=== PATIENT | male | born 1960 | race Caucasian/White ===

== ENCOUNTER 2023-10-31 06:36 | Emergency (ER) | payer BC, SELFPAY ==
[2023-10-31 06:51] VITALS: BP 160/82
--- NOTE | 2023-10-31 07:17 | ED.GENMED ---
History of Present Illness
General
Chief Complaint: Urinary Symptoms
Source: patient
Time Seen by Provider: 10/31/23 07:07
Travel History
Have you had any contact with someone who has COVID-19?: No
Do you have any symptoms of coronavirus? Fever > 100 degrees, chills, cough, shortness of breath, sore throat, loss of taste or smell, muscle aches, or headache?: No
History of Present Illness
History of Present Illness:
63-year-old male with past medical history of bladder cancer, currently being treated with BCG treatments with last being this past , presenting to the emergency department for evaluation after 1 day of dribbling urine, today inability to
void and significant suprapubic fullness and discomfort. Patient states he has had similar before which has required a Wong catheter placement. Patient is getting his treatment at [facility] in [place]. He notes that about 2 weeks ago
he did have a further biopsy and scraping of the bladder. He denies any fevers, chills, rigors, back or flank pain, nausea, vomiting or any other concerns. He also denies any hematuria or large clots.
Past History
Past History
ED Past Medical History: Cancer, Hypercholesterolemia and Other (Status post inguinal hernia repair, hypercholesterolemia )
ED Past Surgical History: Other (Hernia repair)
Social History
Tobacco: Non-smoker
Alcohol: Occasional
Drug: None
Personal:
Living: with family
Family History
Family History: CAD
Review of Systems
Review of Systems
All Other Systems: ROS reviewed and negative except as documented in HPI and ROS
Phy Exam
Physical Exam
Physical Exam:
GENERAL: Alert , pacing in room and appears uncomfortable
EYE: clear conjunctiva b/l
HEAD: NCAT
ENT: o/p clr, mmm.
ABDOMEN: Soft, suprapubic tenderness without any significant distention, no r/g, no cvat
NEUROLOGICAL: Alert and oriented
SKIN: Warm and dry, skin intact.
MUSCULOSKELETAL: No edema, well perfused.
PSYCH: Normal and appropriate interaction.
Scores
Heart Failure Risk
Heart Failure Risk Score: Not Applicable
Heart Score for Chest Pain Patients
STEMI patient?: Not applicable
Withdrawal Assessment of Alcohol
Withdrawal Assessment Completed?: Not applicable
Course
Orders/Labs/Results
Orders:
Orders
10/31/23 07:17
Wong Placement- Treatment ONCE
Reason for insertion: Acute Retention
10/31/23 07:56
Urinalysis Reflex To Culture Urgent
Date Specimen was Collected: 10/31/23
Time Specimen was Collected: 07:33
Urine Microscopic Reflex Cult Urgent
Urine Culture Urgent
ED Source: U
Specimen Description:
Date Specimen was Collected: 10/31/23
Time Specimen was Collected: 07:33
Abnormal Lab Results
10/31/23
07:56
Ur Occult Blood Reflex 3+ A
(Negative)
Leukocyte Esterase Rfl 1+ A
(Negative)
Vital Signs
Initial and Last Documented VS:
Initial Vital Signs
Temp Pulse Resp BP Pulse Ox
98.2 F 71 16 160/82 100
10/31/23 06:51 10/31/23 06:51 10/31/23 06:51 10/31/23 06:51 10/31/23 06:51
Last Documented Vital Signs
Temp Pulse Resp BP Pulse Ox
98.2 F 65 17 132/61 99
10/31/23 08:50 10/31/23 08:50 10/31/23 08:50 10/31/23 08:50 10/31/23 08:50
MDM/Problems Addressed
Differential Diagnosis Includes:
Urinary retention, UTI, BPH, obstructive process
MDM/Problems Addressed:
63-year-old male presenting the emergency department for dribbling urine with inability to void this morning, moderate lower abdominal fullness and discomfort. Bedside bladder scan shows roughly 300 mL of urine retained. Will place Wong catheter
due to patient's discomfort as well as can possibly flush if there is any clot or obstructive process. Will send urine to be checked for UTI. Reassessment following
*Pulse Oximetry
Patient hypoxic: no
*Critical Care Note
Total Time (30-74mins, 75-104mins- exclusive of procedures): Not Applicable
Comment
Comment:
10/31/2023 0753 AM: Patient feeling significant relief following Wong catheter placement. He had approximately 400 mL of clear light yellow urine within Wong bag. UA being sent. Anticipate discharge home.
Patient Management
Escalation/DeEscalation of care consider admission/obs:
Patient's urinalysis without current signs of infection. A urine culture was sent. Patient will contact his urologist on Thursday for follow-up. Aware of return precautions emergency department but otherwise stable for discharge home.
ED Attending Note
-
Portions of this chart may have been created with voice recognition software.� Occasional wrong word or��sound alike� substitutions may have occurred due to the inherent limitations of voice recognition software.
Discharge Plan
Departure
Patient Disposition: Home (Routine Discharge)
Date of Disposition: 10/31/23
Time of Disposition: 08:38
Patient with high blood pressure during this ER visit?: Yes
Discharge Problem:
Acute urinary retention
Instructions: How to Care for Your Wong Catheter, Male
Referrals:
Aristides Mendoza, DO [Family Provider] -
Interventions
Interventions:
ED-Male Genitourinary Assessment Last Done: 10/31/23 08:50
[2023-10-31 08:12] VITALS: BP 134/73
[2023-10-31 08:34] LABS: Urine Albumin Trace (Neg - Trace); Urine Bilirubin Negative (Negative); Urine Character Clear (Clear); Urine Color Yellow; Urine Glucose Negative (Negative); Urine Ketone Negative (Negative); Urine Leukocyte 1+ (Negative); Urine Nitrite Negative (Negative); Urine Occult Blood 3+ (Negative); Urine Urobilinogen Negative (Neg - 1+)
[2023-10-31 08:50] VITALS: BP 132/61
[2023-10-31 09:07] LABS: Urine Red Blood Cell 21-25 /HPF (0-2); Urine White Cell 16-20 /HPF (0-5)
[2023-10-31 09:08] LABS: Urine Bacteria Few (Negative)
== END 2023-10-31 08:55 | disposition home or self-care (01) ==
LOC: EMR 06:36
PROVIDERS: Physician Assistant Medical; EMERGENCY PHYSICIAN Emergency Medicine; FAMILY PHYSICIAN Family Medicine
DX: R33.8 Other retention of urine (principal); Z85.51 Personal history of malignant neoplasm of bladder
CPT/HCPCS: 99283; 51798; 51702; 81003; 81015; 87086

== ENCOUNTER 2023-11-26 07:23 | Emergency (ER) | payer BC, SELFPAY ==
[2023-11-26 07:25] VITALS: BP 180/95
--- NOTE | 2023-11-26 08:11 | ED.GENMED ---
History of Present Illness
General
Chief Complaint: Urinary Symptoms
Source: patient and records
Exam Limitations: none
Time Seen by Provider: 11/26/23 07:55
Nursing documentation reviewed up to this point in time: agreed with
Travel History
Have you had any contact with someone who has COVID-19?: No
Do you have any symptoms of coronavirus? Fever > 100 degrees, chills, cough, shortness of breath, sore throat, loss of taste or smell, muscle aches, or headache?: No
History of Present Illness
History of Present Illness:
63-year-old male with a past medical history of bladder cancer currently receiving BCG treatments through [facility] who presents to the emergency room for evaluation of hematuria and difficulty passing catheter. Patient has been
receiving BCG treatments regularly at [place] [facility] last treatment was a few days ago. He says that he has been having issues with intermittent urinary retention and has been intermittently self catheterizing for urine. This morning woke up and felt
the urge to urinate but was unable to void. He attempted to self catheterize himself but was having difficulty passing the catheter and was not getting any return of urine; when he remove the catheter it was clogged up with clots of blood. Came to
the emergency room for assessment. He reports some suprapubic fullness but no abdominal pain. No flank pain. No fevers or chills. Has not had any other complaints. He is not on blood thinners.
Past History
Past History
ED Past Medical History: Cancer, Hypercholesterolemia and Other (Status post inguinal hernia repair, hypercholesterolemia )
ED Past Surgical History: Other (Hernia repair)
Social History
Tobacco: Non-smoker
Alcohol: Occasional
Drug: None
Personal:
Living: with family
Family History
Family History: CAD
Review of Systems
Review of Systems
All Other Systems: ROS reviewed and negative except as documented in HPI and ROS
Constitutional: Denies fever or chills
Respiratory: Denies trouble breathing
Cardiac: Denies chest pain
ABD/GI: Denies abdominal pain, nausea or vomiting
: Reports difficulty voiding and bleeding; Denies flank pain
Musculoskeletal: Denies neck pain or back pain
Neurological: Denies headache, weakness or numbness
Phy Exam
Physical Exam
Physical Exam:
General: Awake, alert, oriented x3; no acute distress
Head: Normocephalic, atraumatic
Eyes: Conjunctiva normal
Throat: Airway intact, handling secretions
Neck: Trachea midline, supple without meningismus
Lungs: Clear to auscultation bilaterally, no wheezing, rales, rhonchi
Heart: Regular rate and rhythm, no murmurs, gallops, or rubs
Abd: Soft, non distended, nontender
Back: No CVA tenderness
Neuro: No gross deficits
Skin: no rash
Extremities: Warm and well-perfused
Scores
Heart Failure Risk
Heart Failure Risk Score: Not Applicable
Heart Score for Chest Pain Patients
STEMI patient?: Not applicable
Withdrawal Assessment of Alcohol
Withdrawal Assessment Completed?: Not applicable
Course
Orders/Labs/Results
Orders:
Orders
11/26/23 07:44
Lidocaine 2% [Lidocaine Uro-Jet 2%] 1 syringe .ROUTE .[facility]
11/26/23 07:54
CMP [Comprehensive Metabolic Panel] Urgent
Complete Blood Count/With Diff Urgent
11/26/23 07:55
Bladder Scan- Treatment ONCE
11/26/23 08:38
Urinalysis Reflex To Culture Urgent
Date Specimen was Collected: 11/26/23
Time Specimen was Collected: 08:37
Urine Microscopic Reflex Cult Urgent
Urine Culture Urgent
ED Source: U
Specimen Description:
Date Specimen was Collected: 11/26/23
Time Specimen was Collected: 08:37
11/26/23 11:33
CefTRIAXone [Rocephin] 1,000 mg IV NOW STA
Abnormal Lab Results
11/26/23 11/26/23
07:54 08:38
RBC 4.13 L 10^6/uL
(4.70-6.10)
Hgb 12.6 L g/dL
(13.0-18.0)
Hct 37.1 L %
(39.0-52.0)
Monocytes % 9.9 H %
(1.7-9.3)
Potassium 3.4 L mmol/L
(3.5-5.1)
Chloride 108 H mmol/L
(98-107)
Glucose 104 H mg/dl
(70-99)
Total Protein 6.1 L g/dl
(6.3-8.2)
Urine Ketones Trace A
(Negative)
Ur Occult Blood Reflex 4+ A
(Negative)
Urine Nitrite (Reflex) Positive A
(Negative)
Leukocyte Esterase Rfl 1+ A
(Negative)
Urine RBC >100 A /HPF
(0-2)
Urine Albumin (Reflex) 1+ A
(Neg - Trace)
11/26/23 07:54
11/26/23 07:54
Vital Signs
Initial and Last Documented VS:
Initial Vital Signs
Temp Pulse Resp BP Pulse Ox
36.7 C 75 18 180/95 99
11/26/23 07:25 11/26/23 07:25 11/26/23 07:25 11/26/23 07:25 11/26/23 07:25
Last Documented Vital Signs
Temp Pulse Resp BP Pulse Ox
36.7 C 75 18 150/75 99
11/26/23 07:25 11/26/23 07:25 11/26/23 07:25 11/26/23 11:04 11/26/23 10:54
MDM/Problems Addressed
Differential Diagnosis Includes:
Hematuria�likely related to known bladder cancer
MDM/Problems Addressed:
63-year-old male presents with hematuria and difficulty passing catheter/getting return of urine on self-catheterization today. Tried to pass catheter due to sensation of bladder fullness but did not get return of urine only a few clots.
Hypertensive but otherwise normal vitals here. Exam as above. Bladder scan showed approximately 130 cc of retained urine. Will plan to place Wong catheter here in the emergency room and irrigate bladder if return of significant blood/clots.
Will check basic labs and UA. Reassess after the above.
Labs reviewed CBC shows marginal anemia, CMP shows marginal hypokalemia repleted p.o. Urinalysis positive for nitrites with blood, unable to count WBCs due to amount of RBCs. Will cover for UTI given frequent self-catheterization. Patient
currently undergoing bladder irrigation no significant clots passing initially dark red gross hematuria on Wong placement now faint pink color. Will turn off CBI and reassess.
Urine clearing after CBI he now has spontaneous passage of blood tinged pinkish urine. No significant clots, catheter flowing freely. He has had some spasm/discomfort from CBI/large catheter requesting that replace it for a smaller one. Will
replace but I think catheter should remain in place for discharge. He will follow-up with his urologist next week. He feels very happy with this plan. Advised return plenty fluids. Spoke about return precautions all questions answered.
Chronic conditions affecting care:
Bladder cancer
Acute Exacerbation and/or Progression of Chronic Illness:
Acutely hypertensive
Acute Exacerbation and/or Progression of Chronic Illness: HTN
*Pulse Oximetry
Patient hypoxic: no
*Critical Care Note
Total Time (30-74mins, 75-104mins- exclusive of procedures): Not Applicable
Data Reviewed
Review of Other/Old Records Reveals: Labs and Records
Source: patient and records
ED Attending Note
-
Portions of this chart may have been created with voice recognition software.� Occasional wrong word or��sound alike� substitutions may have occurred due to the inherent limitations of voice recognition software.
Discharge Plan
Departure
Patient Disposition: Home (Routine Discharge)
Date of Disposition: 11/26/23
Time of Disposition: 11:44
Patient with high blood pressure during this ER visit?: Yes
Discharge Problem:
Hematuria, Acute UTI, Hypertension
Instructions: Urinary Tract Infection, Adult (DC), Blood in the Urine (Hematuria), Adult (DC), BLOOD PRESSURE
Prescriptions:
New
cefdinir 300 mg capsule
300 mg PO BID Qty: 14 0RF
No Action
multivitamin Tablet
1 tab PO DAILY
amlodipine 5 mg Tablet
5 mg PO BID
Amor 70
3 tab PO BID
calcium
1 tab PO DAILY
Referrals:
Aristides Mendoza, [Family Provider] - Call in 1-3 days for appt
Activity Restrictions/Additional Instructions:
You should call your urologist to schedule follow-up after ED visit today; you should call first thing tomorrow to schedule follow-up as soon as possible.
Thank you for visiting the Emergency Department at [facility].
1. Please schedule a follow up appointment as directed. Call first thing tomorrow morning to make an appointment.
2. If indicated, please take your medications as instructed and indicated on discharge paperwork.
3. If any of your symptoms do not improve, or persist, or become more severe within 6-12 hours, please return to the emergency department for further care.
4. Please return to the emergency department if you develop a headache, neck pain/stiffness, fever greater than 100.4F, chest pain, shortness of breath, persistent nausea, vomiting, slurred speech, difficulty walking, numbness/tingling, weakness,
signs of infection or any other symptoms that are worrisome to you.
Please call [phone] if you have any questions.
Interventions
Interventions:
*Risk Screen - Suicide Last Done: 11/26/23 08:00
*Neglect/Abuse Screening Last Done: 11/26/23 08:00
*ED COVID-19 Vaccine History Last Done: 11/26/23 07:33
ED-Male Genitourinary Assessment Last Done: 11/26/23 08:00
[2023-11-26 08:24] LABS: % Basophils 1.1 % (0-2); % Eosinophils 4.5 % (0-6); % Immature Granulocytes 0.4 % (0-0.5); % Lymphocytes 27.6 % (20.5-51.1); % Monocytes 9.9 % (1.7-9.3); % Neutrophils 56.5 % (42.2-75.2); Absolute Basophils 0.1 10^3/uL (0-0.2); Absolute Eosinophils 0.3 10^3/uL (0-0.7); Absolute Lymphocytes 1.5 10^3/uL (1.2-3.4); Absolute Monocytes 0.6 10^3/uL (0.1-0.6); Absolute Neutrophils 3.1 10^3/uL (1.4-6.5); Hematocrit 37.1 % (39.0-52.0); Hemoglobin 12.6 g/dL (13.0-18.0); Mean Corpuscular Hgb 30.5 pg (27.0-31.0); Mean Corpuscular Volume 89.8 fL (80.0-94.0); Mean Platelet Volume 9.6 fL (7.4-10.4); Nucleated Red Blood Cells % 0 % (-); Platelet Count 227 10^3/uL (130-400); Red Blood Cell Count 4.13 10^6/uL (4.70-6.10); Red Cell Dist. Width 13.2 % (11.5-14.5); White Blood Cell Count 5.6 10^3/uL (4.8-10.8)
[2023-11-26 08:34] LABS: ALT (SGPT) 15 U/L (0-50); AST (SGOT) 22 U/L (17-59); Albumin 3.9 g/dl (3.5-5.0); Alkaline Phosphatase 67 U/L (38-126); Blood Urea Nitrogen 18 mg/dl (9-20); Calcium 8.8 mg/dl (8.4-10.2); Carbon Dioxide 26 mmol/L (22-30); Chloride 108 mmol/L (98-107); Glucose 104 mg/dl (70-99); Potassium 3.4 mmol/L (3.5-5.1); Sodium 138 mmol/L (135-145); Total Bilirubin 0.5 mg/dl (0.2-1.3); Total Protein 6.1 g/dl (6.3-8.2); eGFR > 60.00
[2023-11-26 08:38] VITALS: BP 152/69
[2023-11-26 08:51] LABS: Urine Albumin 1+ (Neg - Trace); Urine Bilirubin Negative (Negative); Urine Character Very Cloudy (Clear); Urine Color Red; Urine Glucose Negative (Negative); Urine Ketone Trace (Negative); Urine Leukocyte 1+ (Negative); Urine Nitrite Positive (Negative); Urine Occult Blood 4+ (Negative); Urine Urobilinogen Negative (Neg - 1+); Urine pH 6.5 (5.0-9.0)
[2023-11-26 08:59] LABS: Urine Red Blood Cell >100 /HPF (0-2)
[2023-11-26 09:00] VITALS: BP 144/73
[2023-11-26 10:00] VITALS: BP 146/72
[2023-11-26 11:04] VITALS: BP 150/75
[2023-11-26] MEDS: ROCEPHIN 1000 MG IV (11:33)
== END 2023-11-26 12:34 | disposition home or self-care (01) ==
LOC: EMR 07:23
PROVIDERS: Emergency Medicine; EMERGENCY PHYSICIAN Emergency Medicine; FAMILY PHYSICIAN Family Medicine
DX: R31.9 Hematuria, unspecified (principal); N39.0 Urinary tract infection, site not specified; I10 Essential (primary) hypertension; E78.00 Pure hypercholesterolemia, unspecified; C67.9 Malignant neoplasm of bladder, unspecified; E87.6 Hypokalemia; Z82.49 Family history of ischemic heart disease and other diseases of the circulatory system; Z98.890 Other specified postprocedural states
CPT/HCPCS: 99283; 96374; 80053; 81003; 81015; 85025; 87086

== ENCOUNTER 2024-04-10 22:34 | Emergency (ER) | payer BC, SELFPAY ==
[2024-04-10 22:37] VITALS: BP 181/137; BMI 20.7
[2024-04-10 23:01] LABS: Urine Albumin Negative (Neg - Trace); Urine Bilirubin Negative (Negative); Urine Character Clear (Clear); Urine Color Straw; Urine Glucose Negative (Negative); Urine Ketone Negative (Negative); Urine Leukocyte 1+ (Negative); Urine Nitrite Negative (Negative); Urine Occult Blood 2+ (Negative); Urine Urobilinogen Negative (Neg - 1+)
[2024-04-10 23:18] LABS: Urine Bacteria Few (Negative); Urine White Cell 30-40 /HPF (0-5)
--- NOTE | 2024-04-11 00:58 | ED.GENMED ---
Addendum entered and electronically signed by Max Mohamud PA-C 04/14/24 07:35:
On levofloxacin, appropriate per C&S
Original Note:
History of Present Illness
General
Chief Complaint: Urinary Symptoms
Source: patient
Exam Limitations: none
Time Seen by Provider: 04/11/24 00:42
History of Present Illness
History of Present Illness:
This is a 63 year old male that comes in with c/o urinary retention. State that last Thursday a week ago he had a procedure at [place] as he had urethral stricture. States that they also checked his bladder and they said that everything was looking
great. States that he had a catheter and then it was removed on Thursday. States that he noticed that his urine was starting to decrease yesterday and then this evening he was unable to urinate. State that he knows this feeling so he came in.
Denies any fever, chills, chest pain, SOB, abd pain, nausea, vomiting, diarrhea, headache, dizziness.
Past History
Past History
ED Past Medical History: Cancer (Bladder CA, Prostate CA), Hypercholesterolemia and Other (Status post inguinal hernia repair, hypercholesterolemia )
ED Past Surgical History: Other (Hernia repair)
Social History
Tobacco: Non-smoker
Alcohol: Occasional
Drug: None
Personal:
Living: alone
Family History
Family History: CAD
Review of Systems
Review of Systems
All Other Systems: ROS reviewed and negative except as documented in HPI and ROS
Constitutional: Reports no symptoms; Denies fever or chills
EENT: Reports no symptoms
Respiratory: Reports no symptoms; Denies cough or trouble breathing
Cardiac: Denies chest pain
ABD/GI: Reports no symptoms; Denies abdominal pain, nausea, vomiting or diarrhea
: Reports difficulty voiding
Musculoskeletal: Reports no symptoms
Skin: Reports no symptoms
Neurological: Reports no symptoms; Denies dizzy or headache
Psychiatric: Reports no symptoms
Phy Exam
General Physical Exam
General Presentation: well appearing and no apparent distress
General age: appears stated age
General Skin: warm and dry
General Habitus: normal
General Mental: alert
General Hydration: appears well hydrated
ENT Exam
ENT Exam: TM's normal, pharynx normal and neck supple
Eye Exam
Eye Exam: EOMI
Cardiovascular Exam
Cardiovascular Exam: no edema, normal peripheral pulses and irregularly irregular
Pulmonary Exam
Pulmonary Exam: lungs clear, no respiratory distress, no rales, chest non tender, no crackles, no rhonchi, no wheezing and no cough
Gastrointestinal Exam
Gastrointestinal Exam: normal bowel sounds, non tender, soft, no organomegaly, no pulsatile mass and non distended
Musculoskeletal Exam
Musculoskeletal Exam: full ROM and no edema
Skin Exam
Skin Exam: normal color, warm/dry, no rash and no petechia
Psychiatric Exam
Psychiatric Exam: normal mood/affect
Course
Orders/Labs/Results
Orders:
Orders
04/10/24 22:53
Urinalysis Reflex To Culture Urgent
Date Specimen was Collected: 04/10/24
Time Specimen was Collected: 22:49
Urine Microscopic Reflex Cult Urgent
Urine Culture Urgent
ED Source: U
Specimen Description:
Date Specimen was Collected: 04/10/24
Time Specimen was Collected: 22:49
Abnormal Lab Results
04/10/24
22:53
Ur Occult Blood Reflex 2+ A
(Negative)
Leukocyte Esterase Rfl 1+ A
(Negative)
Urine RBC 11-15 A /HPF
(0-2)
Urine WBC (Reflex) 30-40 A /HPF
(0-5)
Urine Bacteria (Reflex) Few A
(Negative)
Vital Signs
Initial and Last Documented VS:
Initial Vital Signs
Temp Pulse Resp BP Pulse Ox
98.6 F 112 16 181/137 98
04/10/24 22:37 04/10/24 22:37 04/10/24 22:37 04/10/24 22:37 04/10/24 22:37
Last Documented Vital Signs
Temp Pulse Resp BP Pulse Ox
98.6 F 112 16 181/137 98
04/10/24 22:37 04/10/24 22:37 04/10/24 22:37 04/10/24 22:37 04/10/24 22:37
MDM/Problems Addressed
Differential Diagnosis Includes:
Urinary retention. UTi
MDM/Problems Addressed:
This is a 63 year old male that a weeks ago thursday had a urological procedure. States that he had a catheter until Thursday. States that he noticed yesterday his urine was decreasing and then last night he was unable to urinate.
Wong catheter was place. Patient has a UTI. Will start on antibiotics and he will call Julio Wasserman in the morning.
Chronic conditions affecting care:
Urinary retention,
Acute Exacerbation and/or Progression of Chronic Illness:
Urinary retention.
*Pulse Oximetry
Patient hypoxic: no
*EKG
Interpreted by ED Provider?: NA
Rate: EKG- N/A
*Visitor Services Coordinator Interpretation
Rate: Visitor Services Coordinator- N/A
*Critical Care Note
Total Time (30-74mins, 75-104mins- exclusive of procedures): Not Applicable
ED Attending Note
-
Portions of this chart may have been created with voice recognition software.� Occasional wrong word or��sound alike� substitutions may have occurred due to the inherent limitations of voice recognition software.
Discharge Plan
Departure
Patient Disposition: Home (Routine Discharge)
Date of Disposition: 04/11/24
Time of Disposition: 01:16
Patient with high blood pressure during this ER visit?: Yes
Condition: Good
Covid-19: Not Applicable
Discharge Problem:
Urinary tract infection, Acute urinary retention
Instructions: Urinary Tract Infection, Adult (DC), How to Care for Your Wong Catheter, Male, BLOOD PRESSURE
Prescriptions:
New
levofloxacin 500 mg tablet
500 mg PO DAILY 5 Days Qty: 5 0RF
No Action
multivitamin Tablet
1 tab PO DAILY
amlodipine 5 mg Tablet
5 mg PO BID
Amor 70
3 tab PO BID
calcium
1 tab PO DAILY
cefdinir 300 mg capsule
300 mg PO BID Qty: 14 0RF
Activity Restrictions/Additional Instructions:
As discussed, you have had a catheter placed for your retention. You also have a urinary tract infection. You have been given your first dose of antibiotic here and a prescription has been sent to your Pharmacy. Please call the Urologist tomorrow
for further evaluation. IF YOU HAVE FEVER, OR YOU HAVE ANY OTHER CONCERNS PLEASE RETURN TO THE EMERGENCY ROOM.
Interventions
Interventions:
*Risk Screen - Suicide Last Done: 04/10/24 22:37
*Neglect/Abuse Screening Last Done: 04/10/24 22:37
ED- Fall Risk Assessment Last Done: 04/10/24 22:37
Discharge Date and Time
Print Language: [id number]
[2024-04-11 01:15] VITALS: BP 138/91
[2024-04-11] MEDS: LEVAQUIN 500 MG PO (01:18)
== END 2024-04-11 01:25 | disposition home or self-care (01) ==
LOC: EMR 22:34
PROVIDERS: Emergency Medicine; EMERGENCY PHYSICIAN Emergency Medicine; FAMILY PHYSICIAN Family Medicine
DX: N39.0 Urinary tract infection, site not specified (principal); R33.9 Retention of urine, unspecified
CPT/HCPCS: 99283; 51702; 81003; 81015; 87077; 87086; 87186

== ENCOUNTER 2024-04-21 06:08 | Emergency (ER) | payer BC, SELFPAY ==
[2024-04-21] VITALS (13 sets, daily range): BP systolic 105–170; BP diastolic 67–100; BMI 21.1
--- NOTE | 2024-04-21 06:28 | ED.GENMED ---
History of Present Illness
General
Chief Complaint: Male Genito-Urinary Symptoms
Source: patient
Exam Limitations: none
Time Seen by Provider: 04/21/24 06:18
History of Present Illness
History of Present Illness:
Patient with a history of prostate CA/prostatectomy post radiation cystitis and urethral stricture presents with urinary retention. Patient has been treated at [facility]. He had a catheter placed here April 10. Removed 3 days ago. Started feeling
urinary retention last evening. Currently complaining of lower abdominal pressure and fullness. No fever chills or infectious symptoms. Secondarily patient stated that at 1 point they thought he might be in atrial fibrillation however no testing
was done. He has a follow-up with cardiology for this. He denies any symptoms related to this
Past History
Past History
ED Past Medical History: Cancer (Bladder CA, Prostate CA), Hypercholesterolemia and Other (Status post inguinal hernia repair, hypercholesterolemia )
ED Past Surgical History: Urological and Other (Hernia repair)
Social History
Tobacco: Non-smoker
Alcohol: Occasional
Drug: None
Personal:
Living: alone
Family History
Family History: CAD
Review of Systems
Review of Systems
All Other Systems: Not applicable
Constitutional: Denies fever or chills
: Denies flank pain or bleeding
Phy Exam
Physical Exam
Physical Exam:
GENERAL: Alert and oriented in no apparent distress
EYE: Orbits normal.
NECK: Supple
CARDIAC: Irregular irregular no murmur
LUNGS: Clear breath sounds,normal
ABDOMEN: Soft, suprapubic fullness with mild discomfort. No rebound or guarding no mass or hernia
NEUROLOGICAL: Alert and oriented , grossly non-focal
SKIN: Warm and dry, no rash or lesion, no discoloration, skin intact.
MUSCULOSKELETAL: No edema,no deformity.Good color
PSYCH: Normal and appropriate interaction.
Scores
[id number] Score for Afib Stroke Risk
Age in Years (65=0, 65-74=1, >/=75=2): <65
Sex (Female=+1): Male
Congestive Heart Failure History (Yes=+1): No
Hypertension History (Yes=+1): Yes
Stroke/TIA/Thromboembolism History (Yes=+2): No
Vascular Disease History (Yes=+1): No
Diabetes Mellitus (Yes=+1): No
Score: 1
Anticoagulation Recommendations: Consider anticoagulation (as validated in nonvalvular fib)
Course
Orders/Labs/Results
Orders:
Orders
04/21/24 06:26
EKG [Electrocardiogram (*1)] Urgent
Reason for Study: Atrial Fibrillation
Wong Placement- Treatment ONCE
Reason for insertion: Acute Retention
04/21/24 06:27
EKG- Treatment ONCE
04/21/24 07:08
Urinalysis Reflex To Culture Urgent
Date Specimen was Collected: 04/21/24
Time Specimen was Collected: 06:59
Urine Microscopic Reflex Cult Urgent
04/21/24 07:51
Diltiazem Extended Release [Cardizem Cd] 180 mg PO NOW STA
04/21/24 07:52
Apixaban [Eliquis] 5 mg PO NOW STA
04/21/24 08:37
Diltiazem Extended Release [Cardizem Cd] 120 mg PO NOW STA
04/21/24 08:43
Echo 2D MMode Color/Doppler Urgent
Reason for Study: abnormal EKG, afib
04/21/24 09:07
Potassium Chloride [KCl] 20 meq PO NOW STA
04/21/24 09:50
Basic Metabolic Panel Urgent
Complete Blood Count/With Diff Urgent
TSH Reflex To Free T4 Urgent
Comment: ADD ON
Troponin I Urgent
Comment: NO TUBE TO ADD ON TO PLEASE DRAW
04/21/24 10:50
Apixaban [Eliquis] 5 mg PO NOW STA
Flecainide [Tambocor] 50 mg PO NOW STA
Abnormal Lab Results
04/21/24 04/21/24
07:08 09:50
Absolute Lymphs (auto) 1.1 L 10^3/uL
(1.2-3.4)
Lymphocytes % 18.4 L %
(20.5-51.1)
Glucose 110 H mg/dl
(70-99)
Ur Occult Blood Reflex 2+ A
(Negative)
Leukocyte Esterase Rfl Trace A
(Negative)
Urine RBC 7-10 A /HPF
(0-2)
Urine Bacteria (Reflex) Few A
(Negative)
04/21/24 09:50
04/21/24 09:50
Vital Signs
Initial and Last Documented VS:
Initial Vital Signs
Temp Pulse Resp BP Pulse Ox
98.1 F 111 20 170/100 99
04/21/24 06:11 04/21/24 06:11 04/21/24 06:11 04/21/24 06:11 04/21/24 06:11
Last Documented Vital Signs
Temp Pulse Resp BP Pulse Ox
98.1 F 115 20 126/79 99
04/21/24 06:11 04/21/24 10:00 04/21/24 10:00 04/21/24 09:30 04/21/24 10:00
MDM/Problems Addressed
Differential Diagnosis Includes:
Patient with 2 issues. Primarily this is a urologic issue. Urinary retention. Requires Wong. History of some urethral stricture issues and had a urethral dilatation but no major urethral surgery. He tolerated a Wong catheter 10 days ago
without difficulty. At this time reasonable to place Wong. Doubt infectious issue but will check urine. As for his atrial fibrillation his heart rate is mildly irregular. Warrants an EKG to document the atrial fibrillation. Then we will
discuss anticoagulation with a [id number] score of 1.
*Pulse Oximetry
Patient hypoxic: no
*Critical Care Note
Total Time (30-74mins, 75-104mins- exclusive of procedures): Not Applicable
Data Reviewed
Review of Other/Old Records Reveals: Labs, Records and Testing
Update Note
Update Note:
Discussed with patient urologic group. They are okay with him on Eliquis. Contacted the cardiology group that he will follow-up with here. Patient is currently on amlodipine. We will change him to Cardizem. He is aware of the risk benefit of
Eliquis. [id number] is 1
Cleared by cardiology. Flecainide 50 mg twice daily. Cardizem 120 a day and Eliquis.
ED Attending Note
-
Portions of this chart may have been created with voice recognition software.� Occasional wrong word or��sound alike� substitutions may have occurred due to the inherent limitations of voice recognition software.
Discharge Plan
Departure
Patient Disposition: Home (Routine Discharge)
Date of Disposition: 04/21/24
Time of Disposition: 12:13
Patient with high blood pressure during this ER visit?: Yes
Discharge Problem:
Urinary retention, Paroxysmal atrial fibrillation
Instructions: Atrial Fibrillation (DC), How to Care for Your Wong Catheter, Male, Urinary Retention (DC), Managing increased bleeding risk, BLOOD PRESSURE
Prescriptions:
New
Eliquis 5 mg tablet
5 mg PO BID Qty: 60 0RF
diltiazem HCl [Cardizem CD] 120 mg capsule,extended release 24hr
120 mg PO DAILY Qty: 30 0RF
flecainide 50 mg tablet
50 mg PO Q12H Qty: 60 0RF
No Action
multivitamin Tablet
1 tab PO DAILY
amlodipine 5 mg Tablet
5 mg PO BID
Amor 70
3 tab PO BID
calcium
1 tab PO DAILY
cefdinir 300 mg capsule
300 mg PO BID Qty: 14 0RF
levofloxacin 500 mg tablet
500 mg PO DAILY 5 Days Qty: 5 0RF
Referrals:
Aristides Mendoza DO [Family Provider] -
Angela Munoz MD [Active] - 05/19/24 11:00 am (You have a cardiology follow-up appointment at [facility]. Please call with questions)
Nicola Hernandez MD [Active] - Next open appointment
Activity Restrictions/Additional Instructions:
You are scheduled for an EKG on 04/25/2024 at 2:20 PM at the [facility] in [facility], [place], [address]. Please call [phone] with questions.
Interventions
Interventions:
*Risk Screen - Suicide Last Done: 04/21/24 06:11
*General Assessment Last Done: 04/21/24 06:11
*Neglect/Abuse Screening Last Done: 04/21/24 06:11
ED- Fall Risk Assessment Last Done: 04/21/24 06:11
*ED COVID-19 Vaccine History Last Done: 04/21/24 06:11
ED-Male Genitourinary Assessment Last Done: 04/21/24 06:26
Discharge Date and Time
Print Language: PASHTO
[2024-04-21 07:18] LABS: Urine Albumin Negative (Neg - Trace); Urine Bilirubin Negative (Negative); Urine Character Clear (Clear); Urine Color Yellow; Urine Glucose Negative (Negative); Urine Ketone Negative (Negative); Urine Leukocyte Trace (Negative); Urine Nitrite Negative (Negative); Urine Occult Blood 2+ (Negative); Urine Urobilinogen Negative (Neg - 1+); Urine pH 6.5 (5.0-9.0)
[2024-04-21 07:37] LABS: Urine Bacteria Few (Negative); Urine Squamous Cell 0-2 /LPF (Few)
--- NOTE | 2024-04-21 08:43 | CON.CAR ---
Addendum entered and electronically signed by Nicola Hernandez MD 04/21/24 10:42:
63-year-old man without significant cardiac history, remote prostate cancer with subsequent radiation cystitis and bladder outlet obstruction, currently with Wong catheter in place, has received immunotherapy for recently diagnosed bladder cancer.
He presented with urinary retention and in the emergency department found to have previously undiagnosed paroxysmal atrial fibrillation. In retrospect this has probably been going on for weeks. Currently no awareness of atrial fibrillation despite
the fact that his heart rate is 130. In the emergency department, patient is in and out of atrial fibrillation
PMH: Prostate cancer, transitional cell carcinoma of the bladder, hypertension hypercholesterolemia
PSH: Herniorrhaphy, prostatectomy
SH: , lives alone,occasional alcohol, non-smoker
Allergies: None
FH: Positive for CAD
Outpatient meds: Cefdinir orternel, amlodipine
ROS: Negative except as above
144/88, pulse 108, respirate 17, afebrile, sats 97%
Head neck exam is unremarkable, lungs are clear irregular rate and rhythm without obvious murmurs tachycardic JVD okay carotids okay abdomen okay, no edema, pulses palpable, neuro nonfocal musculoskeletal intact
Troponin is negative, labs otherwise unremarkable
Echo small LV, mild LVH, trace MR
EKG atrial fib rapid ventricular response diffuse ST segment depression, repeat EKG pending
Impression:
Paroxysmal atrial fibrillation
Remote prostate cancer
Transitional cell carcinoma of the bladder
Hypertension
Hypercholesterolemia
Bladder outlet obstruction
Plan:
He has an undetectable troponin and mild LVH that does not preclude therapy with an antiarrhythmic drug. Given that he is in and out of A-fib frequently, rate control alone may prove difficult. Would favor the use of flecainide and either
diltiazem or beta-cande. Would anticoagulate with Eliquis at this time.
Given that troponin is undetectable and there is no clear-cut evidence of CAD, he can be treated as an outpatient.
He will need a follow-up stress test to exclude obstructive CAD. He will need follow-up to our office. We will likely arrange for a monitor.
We can consider ongoing antiarrhythmic therapy versus PVI etc. as an outpatient.
Recocmended medications at discharge:
Flecainide 50 mg twice daily
Eliquis 5 mg twice daily
Diltiazem ER 120 mg daily
Stop amlodipine
Avoid Levaquin given flecainide
Other medications per urology/medicine
We will arrange for an outpatient EKG early next week.
Original Note:
Consultation
Consultation Request
Date/Time Consultation Performed: 04/21/24
Requesting Provider: Dr. Rachel
Performing Provider: Pricilla Cruz PA-C for Dr. SAHIL Hernandez
Reason for Consultation: afib
Medical History
-
Chief Complaint: urinary retention
History of Present Illness:
Patient is a 63-year-old male with past medical history of prostate cancer status post prostatectomy, noninvasive bladder cancer status postresection with subsequent radiation cystitis, urethral stricture status post ballooning, and most recently
urinary retention. He is followed at [facility]. He reports he had a catheter placed 04/10/2024 which was removed on Wednesday 04/18 at urology office. He states while in triage at ER 04/10 HR was noted to be elevated however was normal
upon recheck. At urology office on Thursday they noted his heart rate was elevated, however by the time they rechecked it it had come back down. He denies history of cardiac issues, and has never had atrial fibrillation before to his knowledge. He
does report recently he has been more winded with mowing the grass, however denies any chest discomfort or lightheadedness. Upon arrival to the ER today due to recurrence of urinary retention which she noted starting last evening, he was noted to
be in atrial fibrillation with rapid ventricular response. Cardiology consulted for evaluation. He is on Norvasc as an outpatient, which he states he is on prophylactically as he is also on investigational drug for his prostate cancer, orteronel,
which reportedly can cause hypertension. He has not had significant hematuria.
PMH:
Prostate cancer status post prostatectomy, currently on investigational drug orteronel, followed by [facility]
Noninvasive bladder cancer status post resection
Radiation cystitis
Urethral stricture status post ballooning 04/01/24
Urinary retention with catheter placement 04/10/2024, removed 04/18/2024
Past Medical History
Past Medical History: Other (in HPI)
Social History
Tobacco: Non-Smoker
Personal:
Living: With Family
Employment: Employed
Family History
Family History: Early CAD ([place] in father at 55)
Allergies / Home Medications
Allergy/AdvReac Type Severity Reaction Status Date / Time
No Known Allergies Allergy Verified 04/21/24 06:11
�Medication �Instructions �Recorded �Confirmed �Type
Amor 70 3 tab PO BID 11/26/23 11/26/23 History
amlodipine 5 mg tablet 5 mg PO BID 11/26/23 11/26/23 History
calcium 1 tab PO DAILY 11/26/23 11/26/23 History
cefdinir 300 mg capsule 300 mg PO BID #14 caps 11/26/23 Rx
multivitamin 1 tab PO DAILY 11/26/23 11/26/23 History
levofloxacin 500 mg tablet 500 mg PO DAILY Urinary issue 5 04/11/24 Rx
days #5 tabs
Review of Systems
-
History Source: Patient
All other systems: Negative unless noted
Physical Exam
Vital Signs
Temp Pulse Resp BP Pulse Ox
98.1 F 108 17 144/88 97
04/21/24 06:11 04/21/24 08:15 04/21/24 08:15 04/21/24 08:00 04/21/24 08:15
Physical Exam
General: No Apparent Distress and Comfortable
HEENT: Normocephalic, Anicteric and Moist Mucous Membranes
Respiratory: Clear and Non Labored Respirations
Cardiac: S1/S2 and Irregular Rhythm
GI: Soft, Non Tender, Non Distended and Normal Bowel Sounds
Musculoskeletal: No Clubbing, No Cyanosis and No Edema
Skin: Warm and Dry
Neuro: AO x 3
Impression / Plan
-
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 Munoz as new patient 05/19/24
Assessment:
Presentation with recurrent urinary retention
Paroxysmal atrial fibrillation with RVR, new diagnosis of unclear duration
Abnormal EKG
Urinary retention with catheter placement 04/10/2024, removed 04/18/2024
Prostate cancer status post prostatectomy, currently on investigational drug orteronel, followed by [facility]
Noninvasive bladder cancer status post resection
Radiation cystitis
Urethral stricture status post ballooning 04/01/24
Plan:
-Patient presented with recurrent urinary retention after recent catheter removal 04/18/2024 in setting of history of prostate cancer and bladder cancer
-Noted to be in atrial fibrillation with rapid ventricular response, new diagnosis, resulting in cardiology consultation
-During my interview, patient in and out of atrial fibrillation and this appears consistent with his prior presentations of intermittent elevated HRs
-He is relatively asymptomatic, reporting some 'windedness' with activity as OP, no symptoms at present
-EKG with evidence of inferior, anterolateral ST depression while in rapid afib. no CP
-check trop
-check echo
-check TSH
-if trop and echo ok, would plan to initiate cardizem cd 120mg daily and flecainide 50mg Q12H with EKG visit Wednesday 04/25
-[id number] score of 1 at present however in 2 weeks will be 2 for age, HTN. will initiate eliquis 5mg BID. hgb has remained stable over last several months
-d/w ER physician, who had discussed case with patient's urologist. if catheter to be replaced, would be 6 weeks prior to any additional urologic procedures
-will need eventual ischemic eval, plan for OP stress testing if trop and echo ok
-will keep OP follow up appointment 05/19. would consider for OP EP evaluation, can discuss ablation as option
Data Reviewed
-
EKG: Tracing Personally Visualized and interpreted
Labs: Labs Reviewed by me
Old Records: Reviewed
[2024-04-21] MEDS: CARDIZEM CD 120 MG PO (09:11)
[2024-04-21 10:08] LABS: % Basophils 0.9 % (0-2); % Eosinophils 0.9 % (0-6); % Immature Granulocytes 0.5 % (0-0.5); % Lymphocytes 18.4 % (20.5-51.1); % Monocytes 9.3 % (1.7-9.3); Absolute Basophils 0.1 10^3/uL (0-0.2); Absolute Eosinophils 0.1 10^3/uL (0-0.7); Absolute Lymphocytes 1.1 10^3/uL (1.2-3.4); Absolute Monocytes 0.5 10^3/uL (0.1-0.6); Absolute Neutrophils 4.1 10^3/uL (1.4-6.5); Hemoglobin 14.7 g/dL (13.0-18.0); Mean Corpuscular Hgb 30.9 pg (27.0-31.0); Mean Corpuscular Volume 88.4 fL (80.0-94.0); Mean Platelet Volume 9.3 fL (7.4-10.4); Nucleated Red Blood Cells % 0 % (-); Platelet Count 273 10^3/uL (130-400); Red Blood Cell Count 4.75 10^6/uL (4.70-6.10); Red Cell Dist. Width 12.9 % (11.5-14.5); White Blood Cell Count 5.8 10^3/uL (4.8-10.8)
[2024-04-21 10:23] LABS: Blood Urea Nitrogen 16 mg/dl (9-20); Calcium 9.7 mg/dl (8.4-10.2); Carbon Dioxide 30 mmol/L (22-30); Chloride 107 mmol/L (98-107); Estimated Creatinine Clearance 63 ml/min; Glucose 110 mg/dl (70-99); Potassium 3.9 mmol/L (3.5-5.1); Sodium 140 mmol/L (135-145); eGFR > 60.00
[2024-04-21 10:34] LABS: Troponin I < 0.012 ng/ml
[2024-04-21] MEDS: ELIQUIS 5 MG PO (11:15)
[2024-04-21] MEDS: TAMBOCOR 50 MG PO (11:15)
[2024-04-21 12:31] LABS: TSH Reflex To Free T4 0.28 uIU/ml (0.47-4.68)
[2024-04-21 13:26] LABS: Free T4 1.07 ng/dl (0.78-2.19)
== END 2024-04-21 12:45 | disposition home or self-care (01) ==
LOC: EMR 06:08
PROVIDERS: EMERGENCY PHYSICIAN Emergency Medicine; FAMILY PHYSICIAN Family Medicine
DX: R33.9 Retention of urine, unspecified (principal); Z92.3 Personal history of irradiation; Z85.46 Personal history of malignant neoplasm of prostate; E78.00 Pure hypercholesterolemia, unspecified; I11.9 Hypertensive heart disease without heart failure; I48.0 Paroxysmal atrial fibrillation; C61 Malignant neoplasm of prostate; C67.9 Malignant neoplasm of bladder, unspecified; N30.40 Irradiation cystitis without hematuria; Z79.01 Long term (current) use of anticoagulants; Z79.899 Other long term (current) drug therapy; Z82.49 Family history of ischemic heart disease and other diseases of the circulatory system; Z90.79 Acquired absence of other genital organ(s)
CPT/HCPCS: 99284; 51702; 80048; 81003; 81015; 84439; 84443; 84484; 85025; 93005; 93306

== ENCOUNTER → 2024-04-27 14:10 | Outpatient (REF) | payer BC, SELFPAY | LOC: RCS 14:10 | PROVIDERS: ATTENDING PHYSICIAN Internal Medicine Cardiovascular Disease; FAMILY PHYSICIAN Family Medicine | DX: I48.0 Paroxysmal atrial fibrillation (principal); R94.31 Abnormal electrocardiogram [ECG] [EKG]; R06.09 Other forms of dyspnea | CPT/HCPCS: 93017; 93350 ==

== ENCOUNTER 2024-11-07 08:35 | Day surgery (SDC) | payer BC, SELFPAY ==
[2024-10-31 09:38] LABS: % Basophils 1.5 % (0-2); % Eosinophils 4.6 % (0-6); % Immature Granulocytes 0.4 % (0-0.5); % Lymphocytes 28.1 % (20.5-51.1); % Monocytes 9.8 % (1.7-9.3); % Neutrophils 55.6 % (42.2-75.2); Absolute Basophils 0.1 10^3/uL (0-0.2); Absolute Eosinophils 0.2 10^3/uL (0-0.7); Absolute Lymphocytes 1.3 10^3/uL (1.2-3.4); Absolute Monocytes 0.5 10^3/uL (0.1-0.6); Absolute Neutrophils 2.6 10^3/uL (1.4-6.5); Hematocrit 37.9 % (39.0-52.0); Hemoglobin 13.1 g/dL (13.0-18.0); Mean Corp Hgb Conc. 34.6 g/dL (33.0-37.0); Mean Corpuscular Hgb 30.9 pg (27.0-31.0); Mean Corpuscular Volume 89.4 fL (80.0-94.0); Mean Platelet Volume 9.3 fL (7.4-10.4); Nucleated Red Blood Cells % 0 % (-); Platelet Count 213 10^3/uL (130-400); Red Blood Cell Count 4.24 10^6/uL (4.70-6.10); Red Cell Dist. Width 13.4 % (11.5-14.5); White Blood Cell Count 4.6 10^3/uL (4.8-10.8)
[2024-10-31 09:44] VITALS: BMI 22.8
[2024-10-31 09:46] LABS: INR 1.25
[2024-10-31 09:51] LABS: ALT (SGPT) 15 U/L (0-50); AST (SGOT) 22 U/L (17-59); Albumin 4.1 g/dl (3.5-5.0); Alkaline Phosphatase 60 U/L (38-126); Blood Urea Nitrogen 27 mg/dl (9-20); Calcium 9.3 mg/dl (8.4-10.2); Carbon Dioxide 26 mmol/L (22-30); Chloride 106 mmol/L (98-107); Estimated Creatinine Clearance 53 ml/min; Glucose 119 mg/dl (70-99); Magnesium 1.8 mg/dl (1.6-2.3); Potassium 4.1 mmol/L (3.5-5.1); Sodium 139 mmol/L (135-145); Total Bilirubin 0.5 mg/dl (0.2-1.3); Total Protein 6.5 g/dl (6.3-8.2); eGFR > 60.00
[2024-11-07] VITALS (15 sets, daily range): BP systolic 122–193; BP diastolic 71–98; BMI 22.7
[2024-11-07 12:20] LABS: ACT-LR - POC 364 Seconds (116-155)
[2024-11-07 12:41] LABS: ACT-LR - POC 297 Seconds (116-155)
--- NOTE | 2024-11-07 13:57 | ITS.CL.ABL ---
[facility] - Ablation
Ablation
Procedure Report:
ELECTROPHYSIOLOGIC STUDY AND POSSIBLE ABLATION
DATE: November 07, 2024
Primary Care Provider: Dr. Aristides Bustillo
INDICATION:
Symptomatic Atrial Fibrillation.
Paroxysmal
HISTORY: See H and P.
Symptomatic AF, poorly controlled with attempted medical therapy
HAS-BLED: 2
Age
H/O Bleeding
CHADSVASc:
HTN
Age
PRESENTING RHYTHM: SR
HISTORY: See H and P.
Symptomatic AF, poorly controlled with attempted medical therapy.
ANTIARRHYTHMIC DRUG: Flecainide
ANTICOAGULATION: Eliquis 5 mg twice daily
'TIME-OUT': called and confirmed.
SEDATION/ANESTHESIA: provided via the anesthesia department using general anesthesia.
PROCEDURE:
Ultrasound Guidance with real-time visualization of needle insertion and vessel patency performed by wi for femoral venous Vascular Access. Images were taken and saved for the patient's permanent record. Imaging findings typical femoral venous
anatomy. Direct visualization of needle puncture into the femoral vein was observed and recorded.
A decapolar CS catheter was placed within the CS for mapping and pacing.
The intracardiac ultrasound catheter was positioned in the RA for continuous intracardiac ultrasound imaging.
Heparin bolus and infusion to target ACT at 300 -350 seconds was administered. Transseptal puncture was performed. This entailed advancing a sheath with dilator into the superior vena cava and withdrawing both (monitoring intracardiac ultrasound,
fluoroscopy and tip pressure) with the tip oriented toward the atrial septum. The fossa ovalis was engaged (indicated by sudden displacement of the sheath tip as well as tenting of the fossa seen on intracardiac ultrasound).
The GeoGraffiti transseptal system was used. Left atrial catheter position was confirmed by echocardiographic imaging and fluoroscopy followed by RF delivery using the MuckRock system resulting in successful LA access with pressure monitoring
demonstrating LA pressure waveforms (LA mean pressure 12 mm Hg). The sheath was advanced over the dilator and positioned in the left atrium.
The StatSheet multipolar mapping catheter was initially positioned through the transseptal sheath for high density mapping.
Geometry and voltage mapping was performed using the Hyatt multipolar grid catheter. Ensite-X was utilized for three-dimensional electroanatomical mapping.
A 3-D map was created using Ensite-X in Voxel mode. A 3-D reconstructed CT image was compared to the 3-D Navex map to assist in anatomic evaluation, mapping and ablation.
The Corepair catheter and system was used for cardiac ablation. Catheter positioning was guided and confirmed using both I.C.E. and fluoroscopy.
PV isolation approach was used to electrically isolate each PV ostia (LSPV, LIPV, RSPV, RIPV).
Additional energy applications/additional ablation set was required to accomplish wide area circumferential ablation around each of the pulmonary vein sets and additionally ablation to accomplish LA posterior wall ablation.
Remapping with the Hyatt multipolar grid catheter found that all PVPs were eliminated at each vein demonstrating entrance block. Also pacing from the multipolar mapping catheter around the the circumference of the ostia was performed at 10 ma and
2.0 msec output to assess for exit block. This demonstrated electrical isolation at each of the pulmonary vein ostia (LSPV, LIPV, RSPV, RIPV). There is also entrance and exit block at the LA posterior wall.
Programmed electrostimulation failed to induce any sustained arrhythmias.
I.C.E. :
Pre-Ablation Post-Ablation
LVEF: 55 % 55 %
WMA: none none
Pericardial effusion: none none
COMPLICATIONS:
None
SUMMARY:
- Mapping and ablation to isolate the PVs
- Additional AF ablation set after PVI.
- 3-D Electroanatomical Mapping
- Intracardiac Ultrasound
- Ultrasound guidance for vascular access
Post ablation, I discussed today's findings and results with the patient's ex-, Louisa.
RECOMMENDATIONS:
- Observe in monitored bed.
- Maintain oral anticoagulation.
Plan would be to maintain oral anticoagulation for 2 months post ablation
If there is no recurrence of atrial fibrillation, consideration for implantation of loop recorder which may more safely allow long-term avoidance of oral anticoagulation given his h/o hematuria
- Discontinue flecainide
- Office visit is scheduled with MARIS Olvera on January 16, 2025
Copy to:
Dr. Aristides Bustillo
[2024-11-07] MEDS: ANESTHETIC LOZENGE 1 LOZENGE PO (16:03)
--- NOTE | 2024-11-07 17:32 | W.PN.UPDATE ---
Update Note
Progress Note Update
Pt seen post PFA. Right groin site without ht, but some bleeding when he coughed. Manual pressure held with good control and dressing now CDI, no ht/bleeding. OOB ambulating. Suprapubic cath draining urine as before. Post EKG NSR 60s, no acute
changes. Resume eliquis tonight. Will discontinue flecainide at this time, but remain on diltiazem. Followup at [facility] as scheduled. Home today if groin site/tele remain stable.
== END 2024-11-07 18:59 | disposition home or self-care (01) ==
LOC: CATH 08:35
PROVIDERS: ATTENDING PHYSICIAN Internal Medicine Cardiovascular Disease; FAMILY PHYSICIAN Family Medicine
DX: I48.0 Paroxysmal atrial fibrillation (principal); I10 Essential (primary) hypertension; E78.00 Pure hypercholesterolemia, unspecified; Z85.46 Personal history of malignant neoplasm of prostate; Z85.51 Personal history of malignant neoplasm of bladder; Z79.01 Long term (current) use of anticoagulants
CPT/HCPCS: C1732; C1892; C1759; 36415; 75572; 76937; 80053; 83735; 85025; 85347; 85610; 86850; 86900; 86901; 93005; 93656; 93657; C1733; C1766; Q9967

== ENCOUNTER 2025-01-20 13:55 | Day surgery (SDC) | payer BC, SELFPAY ==
--- NOTE | 2025-01-20 14:20 | ITS.CL.IMPLP ---
[facility] - Implant Loop
Implant Loop
Procedure Report:
Primary Physician: Dr Aristides Mendoza
Primary Hydrographic Engineer: Dr Aristides Muniz
Procedure Date: 01/20/2025
Procedure: Placement of a loop recorder.
History/Indication:
1. See office H&P for complete history.
2. Patient is a pleasant 64-year-old male with a past medical history significant for hypertension, bladder cancer, prostate cancer, hematuria, symptomatic paroxysmal atrial fibrillation. Patient to electively undergo ILR implant for longitudinal
surveillance of atrial fibrillation and monitor for recurrence.
Method:
After informed consent was obtained, the patient was brought to the EP laboratory holding area in a fasting, non-sedated state. Peripheral access was established. The left chest was prepared and draped in a sterile fashion. A 'time out' was
called. Local anesthesia was injected in the subcutaneous tissue. The ILR was injected under the skin. Topical skin adhesive was applied. Following the procedure, the patient was taken to the recovery area in stable condition. No complications
were noted.
Device Data:
[employer] System[employer]; Model# LINQII; Serial# [id number]
Conclusion:
Successful placement of a loop recorder.
Recommendations:
1. Follow-up will be arranged in the [facility] in 7-10 days for wound check.
2. Routine ILR care.
3. OK to monitor off Eliquis
Malvin Cifuentes DO
Clinical Cardiac Ingredient Scaler Helper
cc: Dr Aristides Mendoza; Dr Aristides Muniz
== END 2025-01-20 14:50 | disposition home or self-care (01) ==
LOC: CATH 13:55
PROVIDERS: ATTENDING PHYSICIAN Internal Medicine Cardiovascular Disease; FAMILY PHYSICIAN Family Medicine; OTHER PHYSICIAN Internal Medicine Cardiovascular Disease
DX: Z09 Encounter for follow-up examination after completed treatment for conditions other than malignant neoplasm (principal); I48.0 Paroxysmal atrial fibrillation; Z85.51 Personal history of malignant neoplasm of bladder; I10 Essential (primary) hypertension
CPT/HCPCS: 33285; C1764